=== PATIENT | female | born 1955 | race Caucasian/White ===

== ENCOUNTER → 2017-05-22 13:54 | Outpatient (CLI) | payer OTHER ==
[2015-04-15 08:51] VITALS: BMI 25.0
[~2017-05-22 13:54] MED LIST: BIOTIN5 MG PO; CENTRUM COMPLE1 EACH PO; CHOLESTYRAMIN4 G/PK1 PO; CINNAMON500 MG PO; CLARITIN 10 MG10 MG PO; CYCLOBENZAPRINE10 MG PO; FINOFIBRATE; FISH OIL 1,0001 CA1 PO; GLUCOSAMINE & C1 CAP PO; LEVSIN/ANASP0.125 MG PO; LOPRESSOR25 MG PO; NORVASC5 MG PO; PYRIDOXINE HCL100 MG PO; VITAMIN B-121000 MCG PO; ZYRTEC10 MG PO
== END | disposition home or self-care (01) ==
LOC: D.MAMMO 11:00
DX: Z12.31 Encounter for screening mammogram for malignant neoplasm of breast (principal)

== ENCOUNTER → 2017-07-03 10:00 | Outpatient (CLI) | payer OTHER ==
[2015-04-15 08:51] VITALS: BMI 25.0
== END ==
LOC: D.MAMMO 07-02 09:30 → D.US 07-02 10:30 → D.MAMMO 10:00
DX: R92.8 Other abnormal and inconclusive findings on diagnostic imaging of breast (principal)